=== PATIENT | female | born 1950 | race Caucasian/White ===

== ENCOUNTER 2016-10-19 08:30 | Day surgery (SDC) | payer MEDICARE, OTHER ==
[~2016-10-19] VITALS: Ht 167.6 cm; Wt 59.9 kg
[~2016-10-19 08:30] MED LIST: 0.9% Sodium Chloride 1,000 ML IV SCH; ANST1T PO; CALC600T12 PO; CHOL200025 PO; CYCL10TA9 PO; HYDR-3090 PO; NAPR220C11 PO; Sodium Chloride LOK Flush 10 mL Syringe IV PRN; fentaNYL-PF 50 mCg/mL 2 mL Inj IVPUSH PRN
[2016-10-19 08:56] VITALS: BP 118/78; PULSE 69; O2SAT 99
[2016-10-19 09:32] VITALS: BP 125/69; PULSE 66; RESP 17; O2SAT 96
[2016-10-19 09:43] VITALS: BP 145/81; PULSE 67; RESP 17; O2SAT 98
--- NOTE | 2016-10-19 15:02 | ENDO ---
[address] [address] ENDOSCOPY PROCEDURE PATIENT: DAVID MILES : 1950 MR#: [id number] ADMIT: 10/19/2016 JOB ID: [id number] OPERATION: Esophagogastroduodenoscopy (EGD) with biopsy. PREOPERATIVE DIAGNOSIS(ES): Dysphagia. POSTOPERATIVE DIAGNOSIS(ES): Mild nonerosive gastritis. ANESTHESIA: Fentanyl 100 mcg, Versed 5 mg IV administered. COMPLICATIONS: None. ESTIMATED BLOOD LOSS: Minimal. DESCRIPTION OF PROCEDURE: After the risks and benefits were explained to the patient, informed consent was obtained. After anesthesia was administered, the upper endoscope was inserted into the mouth, intubating the esophagus, stomach, second portion of duodenum. Mucosa carefully examined. After the procedure was done, the scope withdrawn and procedure terminated. FINDINGS: Upon inspection of the esophagus, the esophagus was normal, without masses, ulcers, or lesions. Z-line located 40 cm from incisors. Upon entering the stomach, the stomach was also normal, without masses or ulcers, except for there was mild nonerosive gastritis. Retroflexion was normal. Duodenal bulb, first and second portion were normal. Biopsies obtained in antrum, body, mid and distal esophagus. IMPRESSION: Mild nonerosive gastritis. RECOMMENDATION: Await pathology results. Follow up in GI Clinic as needed.
--- NOTE | 2016-10-24 18:27 | PATH ---
SURGICAL PATHOLOGY Attending Physician:Jhon Shell MD CASE STATUS: Signed Out PATIENT NAME: DAVID MILES PID: [id number] : 1950 DATE COLLECTED:10/19/2016 15:38 SPECIMEN: 1: Stomach, Antrum, Biopsy 2: Gastric, Biopsy 3: Esophagus, Biopsy 4: Esophagus, Biopsy CLINICAL HISTORY: DYSPHAGIA 1). ANTRUM BIOPSY 2). GASTRIC BODY BIOPSY 3). MID ESOPHAGUS BIOPSY 4). DISTAL ESOPHAGUS BIOPSY FINAL DIAGNOSIS: 1.GASTRIC ANTRUM, BIOPSY: ANTRAL MUCOSA WITH NO DIAGNOSTIC ABNORMALITY. Negative for Helicobacter organisms. Negative for intestinal metaplasia. Negative for dysplasia and malignancy. 2.GASTRIC BODY, BIOPSY: BODY-TYPE MUCOSA WITH NO DIAGNOSTIC ABNORMALITY. Negative for Helicobacter organisms. Negative for intestinal metaplasia. Negative for dysplasia and malignancy. 3.MID ESOPHAGUS, BIOPSY: SQUAMOUS MUCOSA WITH AT LEAST LOW-GRADE SQUAMOUS DYSPLASIA (SEE COMMENT). 4.DISTAL ESOPHAGUS, BIOPSY: SQUAMOCOLUMNAR JUNCTIONAL MUCOSA WITH FOCAL SPECIALIZED INTESTINAL METAPLASIA. Negative for dysplasia and malignancy. [id number] NOTE: 3. Sections are of squamous mucosa with dysplasia evidenced by nuclear enlargement, crowding, and increased mitotic activity. In areas, the dysplastic cells appear to approach the surface; however, given the oblique sectioning of the specimen, full thickness atypia is not definitively identified. Given the severity of the nuclear atypia, we interpret this as at least low-grade squamous dysplasia bordering on high-grade squamous dysplasia. We note the endoscopic impression of a normal esophagus arguing against a more severe lesion; however, close clinical followup is recommended. 4. The findings at the gastroesophageal junction would be consistent with Singh' s esophagus in the appropriate clinical and endoscopic setting. As part of a routine data quality consultant, Dr. Cardoso has also reviewed parts C and D of this case and agrees with the above interpretation. The findings of dysplasia in the mid esophagus and intestinal metaplasia in the distal esophagus were discussed with Dr. Shell by Dr. Kash Goodrich on 10/23/16 at 11:05 a.m. Additional step sections are examined in Parts 3 and 4. GROSS DESCRIPTION: The specimen is received in four formalin filled containers labeled with the patient's name. 1). The specimen is labeled "antrum" and consists of a 0.3 x 0.2 x 0.2 CM portion of tissue. The specimen is entirely submitted in cassette 1A. 2). The specimen is labeled "gastric body" and consists of a 0.5 x 0.3 x 0.2 CM portion of tissue which is entirely submitted in cassette 2A. 3). The specimen is labeled "mid esophagus" and consists of 2 portions of tissue which aggregate to 0.3 x 0.3 x 0.1 CM. The specimen is entirely submitted in cassette 3A. 4). The specimen is labeled "distal esophagus" and consists of a 0.4 x 0.1 x 0.1 CM portion of tissue which is entirely submitted in cassette 4A. 10/19/2016WA MICRO DESCRIPTION: See diagnosis. ICD-9 CODES: CPT CODES: 1: 40038 2: 11730 3: 52143 4: 94355 Electronically Signed Out Kash Goodrich MD, Ph.D. [facility] Pathology [facility], [place] [address] Technical component performed at [facility], [facility] [address], [place], [address]
== END 2016-10-19 23:59 | disposition home or self-care (01) ==
LOC: END 08:30
PROVIDERS: ATTEND Internal Medicine Gastroenterology
DX: K29.70 Gastritis, unspecified, without bleeding (principal); R13.10 Dysphagia, unspecified